=== PATIENT | male | born 1990 | race Caucasian/White ===

== ENCOUNTER → 2017-05-09 08:33 | Outpatient (CLI) | payer OTHER, SELFPAY ==
--- NOTE | 2017-05-09 08:37 | RAD_ITS ---
STUDY: X-RAY - RIGHT ELBOW REASON FOR EXAM: Male, 27 years old. 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 TECHNIQUE: 3 view(s) of the elbow. COMPARISON: None. FINDINGS: Normal visualized humerus, radius and ulna. Normal radiocapitellar and ulnotrochlear articulations. The soft tissue structures are unremarkable. RAD/Elbow min 3 Views IMPRESSION: Normal x-ray examination of the elbow. Electronically Signed: Giles Fatima MD at 10:13 EDT , Service support ,
== END ==
PROVIDERS: Visit Provider Orthopaedic Surgery
DX: M25.521 Pain in right elbow (principal)
CPT/HCPCS: 73080

== ENCOUNTER → 2017-06-11 13:27 | Outpatient (CLI) | payer OTHER, SELFPAY ==
--- NOTE | 2017-06-11 13:30 | RAD_ITS ---
STUDY: X-RAY - RIGHT SHOULDER REASON FOR EXAM: Shoulder instability. TECHNIQUE: 3 view(s) of the shoulder. COMPARISON: None. FINDINGS: Normal glenohumeral articulation. Normal acromioclavicular joint. Normal acromion. Normal humeral head and visualized proximal humerus. The soft tissue structures are unremarkable. Normal visualized pulmonary apex. RAD/Shoulder min 2 Views IMPRESSION: Normal x-ray examination of the right shoulder. Electronically Signed: Simon Bean MD at 14:23 EDT Tel , Service support ,
== END ==
PROVIDERS: Visit Provider Orthopaedic Surgery
DX: M25.511 Pain in right shoulder (principal)
CPT/HCPCS: 73030

== ENCOUNTER → 2018-06-24 12:57 | Outpatient (CLI) | payer OTHER, SELFPAY ==
--- NOTE | 2018-06-24 12:59 | RAD_ITS ---
STUDY: X-RAY - RIGHT WRIST REASON FOR EXAM: Male, 28 years old. Injury. TECHNIQUE: 3 view(s) of the wrist were obtained. COMPARISON: None. FINDINGS: Normal visualized distal radius and ulna. Normal radiocarpal articulation. Normal distal radioulnar articulation. Normal carpal bones. Normal carpal articulations. Normal carpometacarpal articulation of the thumb. Normal second through fifth carpometacarpal articulations. Normal visualized metacarpal bones. The soft tissue structures are unremarkable. RAD/Wrist min 3 Views IMPRESSION: Normal x-ray examination of the wrist. No evidence of acute injury. Electronically Signed: Tiago Romero MD at 15:58 EDT Tel , Service support ,
== END ==
PROVIDERS: Family Provider Orthopaedic Surgery; Referring Provider Orthopaedic Surgery; Visit Provider Orthopaedic Surgery
DX: R53.1 Weakness (principal)
CPT/HCPCS: 73110

== ENCOUNTER 2018-08-12 15:00 | Outpatient (RCR) | payer OTHER, SELFPAY ==
--- NOTE | 2018-07-02 12:03 | HP.OTEVAL ---
Patient's Visit Information HALIMA RAYMOND is a 28 year old M, referred to Occupational Therapy by Anel Spence DO, with a diagnosis of right wrist pain/strain. Date of Evaluation: 07/02/18 Occupational Therapist: TIGIST Alva/Renan, CHT - Subjective Subjective: This 28 year old male was seen for initial OT eval with dx of right wrist sprain/strain- pt states he was playing tennis/ racket ball- pt states about 4 weeks ago he started playing without warning up and felt a pop on the ulnar side of his wrist. pt states he feels pain and feels as if his right arm is not as strong. Pt would like to return to PLOF with his tennis and work tasks. - Pain right wrist 4 Pain Intensity Range: 0, 3 - ROM Forearm: rigth sup wnl pron 65 left sup 75 Wrist: right 75/60 left 75/65 ROM Comments: left UD 15 RD 15. 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 pain with resistive FCU - Sensation Thumb: right 2.83 left 2.83 Index: right 2.83 left 2.83 Middle: right 2.83 left 2.83 Ring: right 2.83 left 2.83 Little: right 2.83 left 2.83 Sensation Comments: pt reports his right arm does feel off- not strong or not at strong with activities - Hand/Wrist Evaluation Total Score of Pain & Functional Sections: 31 - Goals Goal:: pt will demo right forearm/wrist ROM equal to unaffected UE by d/c to return to PLOF with work tasks. Goal:: pt will report pain no greater than 1/10 with use of right UE with daily occupations and work tasks by d/c Goal:: pt will demo understanding of work ergo to prevent injury by d/c - Rehabilitation General Assessment: pt demo with positive right wrist/forearm muscle sprain/strain- around FCU and pronator. Pain and weakness limit pts ind. with job and daily occupations. pt would benefit from skilled OT services 2-3xweek for 4 weeks to return pt to PLOF. Today therapist ed. pt on ice, use of k-tape, therapist will ed. pt on nerve and tendon glide as pt continues to improve PRE will be initiated. Pt demo understanding and agree to POC. Rehabilitation Potential: Good - Anticipated Interventions Anticipated Interventions: A/AAROM/PROM, Strengthening, Triggerpoint Release, Modalities, Orthoses, Ergonomic Education - Visit Plan Frequency: 2-3x /Week Duration: 4 Weeks TEXT: Thank you for the opportunity to evaluate your patient. For Medicare and Medicare HMO plans, please review the plan of care and approve it. It will need to be FAXED BACK to us at [phone] for Medicare purposes. Please let me know if there are questions or concerns regarding this plan of care. Physician Signature: Date:
--- NOTE | 2018-09-10 15:32 | HP.OT.NRP ---
HP - Discharge Summary - Patient Information HALIMA RAYMOND was seen in my office for initial evaluation on 07/02/18. The following Plan of Care was established for this patient: Initial Frequency: 2-3x /Week Initial Duration: 4 Weeks Plan: Pt wanting hawk tool to be used after US-OT unable to this date due to time constraints. - Anticipated Interventions Anticipated Interventions: A/AAROM/PROM, Strengthening, Triggerpoint Release, Modalities, Orthoses, Ergonomic Education This patient was last seen in our office 08/12/18. Pertinent comments regarding their Occupational therapy will appear below: pt seen for 6 OT sessions to decrease wrist pain. pt using k-tape, PRE and ice for HEP- pt did have good results with use of US and trigger point release with Hawk tool. Pt has not scheduled any further sessions and is d/c due to time lapse in therapy services. At this point I will be discontinuing this patient from occupational therapy. I would be happy to see this patient again in the future if found appropriate by the physician. Thank you! Gala Kinney, OTR/L, CHT
== END 2018-08-12 19:00 | disposition home or self-care (01) ==
LOC: OT 15:00
PROVIDERS: Family Provider Family Medicine; PCP Family Medicine; Referring Provider Orthopaedic Surgery; Visit Provider Orthopaedic Surgery
DX: M77.41 Metatarsalgia, right foot (principal); S93.601D Unspecified sprain of right foot, subsequent encounter
CPT/HCPCS: 97035; 97110; 97140; 97166

== ENCOUNTER 2019-03-02 21:55 | Observation (INO) | payer OTHER, SELFPAY ==
[2019-03-02 21:55] VITALS: BP 155/91; PULSE 101; RESP 18; TEMP 36.3; O2SAT 95; BMI 28.5
--- NOTE | 2019-03-02 22:40 | CT_ITS ---
We are attempting to reach an attending provider to discuss findings. An addendum with communication details will be sent when the communication is complete. STUDY: CT ABDOMEN AND PELVIS WITH CONTRAST REASON FOR EXAM: Male, 28 years old. RLQ PAIN TODAY, ELEVATED WBC RADIATION DOSAGE (If Supplied By Facility): CTDIvol = ( 13.91 ) mGy, DLP = ( 939.13 ) mGycm TECHNIQUE: Transaxial images were obtained from the dome of the diaphragm to the symphysis pubis without oral contrast. IV 100mL Isovue-370 was administered. Sagittal and coronal images were reconstructed. Individualized dose optimization techniques were used for this CT. COMPARISON: None. FINDINGS: The visualized lung bases are unremarkable. The visualized portions of the heart are within normal limits. Normal liver. Normal gallbladder and extrahepatic biliary system. Normal spleen. Normal pancreas. Normal bilateral adrenal glands. Normal right kidney. Normal left kidney. Normal visualized stomach. Normal small intestine. There is minimal edema at the level of the cecum. There is a tubular, and feeding thick-walled appendix measuring 1.1 cm consistent with acute appendicitis. Normal abdominal aorta. Normal inferior vena cava. Normal retroperitoneum. Normal urinary bladder. Normal visualized prostate gland. There is trace fluid in the right side of the pelvis. Normal osseous structures. CT/Abdomen/Pelvis W IV Cont ONLY IMPRESSION: Findings highly suspicious for acute appendicitis. Electronically Signed: Jennifer Irvin MD at 23:59 EST Tel , Service support ,
[2019-03-02] MEDS: 0.9% Normal Saline 1,000 ML 1000 ML IV (23:00)
[2019-03-02] MEDS: Morphine 4 MG/ML Syringe IV (23:00)
[2019-03-02] MEDS: Ondansetron 4 MG/2 ML Vial IV (23:03)
[2019-03-02 23:14] LABS: Absolute Lymphocyte Count 1.72 X10^3/uL (0.83-4.51); Absolute Neutrophil Count 9.6 X10^3/uL (2.0-7.7); Basophil# 0.03 X10^3/uL; Basophil% 0.2 % (0-1); Eosinophil# 0.14 X10^3/uL; Eosinophils% 1.1 % (0-5); Hematocrit 45.3 % (40-54); Lymphocyte # 1.72 X10^3/ul (4.0); Lymphocyte % 13.7 % (19-41); Mean Corp Hgb Conc 33.1 g/dL (32-36); Mean Corpuscular Hgb 28.6 pg (27.0-32.0); Mean Corpuscular Volume 86.3 fL (80-94); Monocyte# 1.03 X10^3/uL; Monocyte% 8.2 % (0-10); NRBC Flagged by Analyzer 0 % (0-5); Neutrophil % 76.6 % (47-70); Platelet Count 323 K/mm3 (150-450); RBC Distribution Width CV 12.2 % (11.6-14.6); RBC Distribution Width SD 38.5 fl (35.1-43.9); Red Blood Count 5.25 M/mm3 (4.6-6.2); White Blood Count 12.6 K/mm3 (4.4-11.0)
--- NOTE | 2019-03-02 23:25 | ED.DCSUM_ITS ---
History of Present Illness Chief Complaint: Abd Pain Informant: Patient - Abdominal Pain/Flank Pain Onset: Today Context: Gradual Onset Timing: Continuous Quality: Sharp, Stabbing Location: RLQ - Nausea/Vomiting/Emesis GI Symptom: Negative for: Nausea, Vomiting - Diarrhea/Melena/Hematochezia GI Symptom: Negative for: Diarrhea Narrative: Patient is a 28-year-old male with no significant past medical history presenting with worsening right lower quadrant abdominal pain. He states yesterday his stomach felt a little upset but he thought he maybe had a bug. Today while he was at work he developed pain in his right lower quadrant. He describes it as sharp. Is much worse whenever he moves or walks around. The pain does not radiate. He does not have any pain in his testicles. He denies any fever or chills. He states he had normal bowel movements. He denies taking any for pain. Pain started approximately 4 to 5 hours prior to arrival. Patient did have right knee surgery recently. He has had no complications with it. He still in a knee immobilizer for this. Patient not take anything for pain prior to arrival. Past Medical History - Allergies and Home Meds Allergies/Adverse Reactions: Allergies No Known Allergies Allergy (Verified 03/02/19 21:58) Primary Care Physician: Kendrick Villarreal MD [Primary Care Provider] - Past Medical History: None Surgical History: - - Right knee surgery Lives: Spouse/ Significant Other Smoking Status: Never smoker - Family History Maternal Family History: Family History (Last Updated 05/09/17 @ 08:27 by Cheryl Ludwig) Mother Depression Review of Systems General: Denies: Chills, Fever, Sweats Eyes: Denies: Visual changes - bilaterally, Diplopia ENT: Denies: Rhinorrhea, Sore throat Cardiovascular: Denies: Chest pain, Palpitations Respiratory: Denies: Dyspnea, Cough, Dyspnea on exertion Gastrointestinal: Reports: Abdominal pain - Right lower quadrant. Denies: Nausea, Vomiting, Diarrhea, Melena, Hematochezia Genitourinary: Denies: Dysuria, Hematuria, Frequency Musculoskeletal: Reports: Extremity Pain - Right knee pain?postoperative, normal for patient. Denies: Back pain Skin: Denies: Rash, Wounds Neurological: Denies: Headache, Weakness, Numbness Physical Exam Vital Signs/Narrative: Vital Signs Temp Pulse Resp BP Pulse Ox 03/02/19 21:55 97.3 F L 101 H 18 155/91 H 95 General: Well nourished, Well developed, No Acute Distress Head: Normocephalic, Atraumatic Eyes: Perrl, EOMI ENT: Moist mucous membranes, No rhinorrhea Neck: Supple, Nontender Cardiovascular: Regular rate, Regular rhythm, No murmurs Respiratory: No distress, CTA bilaterally, Chest nontender Abdomen: Soft, Normal bowel sounds, Tender - Right lower quadrant, Guarding, Rebound tenderness, Psoas sign, Obturator sign, Rovsig's sign Back: Nontender, Normal Inspection. Negative for: CVA tenderness Extremities: Nontender, - - Right lower extremity is in a knee immobilizer Skin: Normal color, No rash Neurological: Alert, Oriented x3, Cranial nerves II-XII grossly intact, Normal Strength, Normal Sensation Psychological: Normal affect, Normal Mood Diagnostic/Tx/Re-eval Clinical Impression(s) from Imaging Studies Abdomen/Pelvis CT 03/02/19 22:40 IMPRESSION: Findings highly suspicious for acute appendicitis. Electronically Signed: Jeninfer Irvin MD at 23:59 EST Tel , Service support , ADDENDUM: 03/03/19 0009 IMPRESSION: Findings highly suspicious for acute appendicitis. N.B. : The above information has been verbally conveyed by Jennifer Irvin MD to Mile Alvares MD, on 03/03/2019 00:02:41 (ET). Electronically Signed: Jennifer Irvin MD at 23:59 EST Tel , Service support , Laboratory Data 03/02/19 03/02/19 23:05 23:05 WBC 12.6 H RBC 5.25 Hgb 15.0 Hct 45.3 MCV 86.3 MCH 28.6 MCHC 33.1 RDW Std Deviation 38.5 RDW Coeff of Adelina 12.2 Plt Count 323 MPV 10.0 Immature Gran % (Auto) 0.200 Neut % (Auto) 76.6 H Lymph % (Auto) 13.7 L Rock % (Auto) 8.2 Eos % (Auto) 1.1 Baso % (Auto) 0.2 Absolute Neuts (auto) 9.6 H Absolute Lymphs (auto) 1.72 Nucleated RBC % 0 Sodium 135 L Potassium 3.8 Chloride 104 Carbon Dioxide 25.0 Anion Gap 6 BUN 18 Creatinine 0.99 Estim Creat Clear Calc 120.43 Est GFR (MDRD) Af Amer 117 Est GFR (MDRD) Non-Af 97 BUN/Creatinine Ratio 18.3 Glucose 93 Calcium 9.7 Total Bilirubin 0.90 AST 15 ALT 37 Alkaline Phosphatase 82 Total Protein 7.9 Albumin 3.8 Globulin 4.1 Albumin/Globulin Ratio 0.9 - Medical Decision Making Patient is evaluated for right lower quadrant pain. Physical exam is concerning for acute appendicitis. He is given IV fluids, Zofran and morphine. CT shows acute appendicitis but no signs of rupture. Discussed with surgery on-call, Dr. Shafer, who examined the patient and accepts the patient to his service for appendectomy. Patient is stable in the emergency room. He is given another dose of morphine in the emergency room. Patient is agreeable with plan. He stable at time of disposition. ED Disposition - Plan for ED Patient: Disposition: Acute Care [facility] Diagnosis: Acute appendicitis Referrals: Kendrick Villarreal MD [Primary Care Provider] -
[2019-03-02 23:27] LABS: ALB/GLOB Ratio 0.9 RATIO (0.9-2.4); AST(SGOT) 15 U/L (15-37); Alanine Aminotransfer ALT/SGPT 37 U/L (16-61); Albumin, Serum 3.8 g/dL (3.2-5.0); Alkaline Phosphatase 82 U/L (45-117); Anion Gap 6 (5-15); BUN 18 mg/dL (7-18); BUN/Creat Ratio 18.3 RATIO (10-20); Calcium,Total 9.7 mg/dL (8.5-10.1); Chloride 104 mmol/L (98-107); Creatinine, Serum 0.99 mg/dL (0.70-1.30); EST Glomerular Filtration Rate 97 mL/min (>60); Est Glom Filt Rate - Afr Amer 117 mL/min (>60); Estimated Creatinine Clearance 120.43 ml/min; Globulin 4.1 g/dL (2.2-4.2); Glucose 93 mg/dL (74-106); Potassium 3.8 mmol/L (3.5-5.1); Protein, Total 7.9 g/dL (6.4-8.2); Sodium Level 135 mmol/L (136-145)
[2019-03-03] VITALS (11 sets, daily range): BP systolic 106–138; BP diastolic 57–76; PULSE 78–97; RESP 16–18; TEMP 36.7–37.4; O2SAT 93–97; BMI 28.3
[2019-03-03] MEDS: Morphine 4 MG/ML Syringe IV (00:24)
--- NOTE | 2019-03-03 00:27 | HP.PCM_ITS ---
Problem List (1) Acute appendicitis Status: Acute Qualifiers: Acute appendicitis type: unspecified acute appendicitis type Qualified Code(s): K35.80 - Unspecified acute appendicitis History of Present Illness Date of Admission: 03/03/19 The patient is a 28 year old M who presented with 24 hours of right lower quadrant pain. He does describe nausea but no vomiting. He says the pain started in the umbilical area and migrated to the right lower quadrant. He describes chills but no fevers. Past Medical History Medical History: Medical History (Last Updated 05/09/17 @ 08:26 by Cheryl Ludwig) Depression F32.9 Schizophrenia F20.9 Diamond teeth extracted K08.409 Allergies No Known Allergies Allergy (Verified 03/02/19 21:58) Home Medications: Ambulatory Orders Medication Instructions Recorded Aripiprazole [Abilify] 20 mg PO DAILY 03/02/19 Docusate Sodium [Stool Softener] 100 mg PO DAILY 03/02/19 Paroxetine HCl [Paxil] 10 mg PO DAILY 03/02/19 Surgical History: - - Right knee surgery Lives: Spouse/ Significant Other Smoking Status: Never smoker - *Family History Maternal Family History: Family History (Last Updated 05/09/17 @ 08:27 by Cheryl Ludwig) Mother Depression Review of Systems Constitutional: Reports: Anorexia. Denies: Fever HEENT: Denies: Difficulty Swallowing Cardiovascular: Denies: Chest Pain Respiratory: Denies: Cough Gastrointestinal: Reports: Abdominal Pain, Nausea. Denies: Constipation, Diarrhea, Vomiting Genitourinary: Denies: Dysuria Musculoskeletal: Denies: Joint Tenderness Skin: Denies: Pruritis Neurological: Denies: Blurred vision Psychiatric: Reports: Depression Hematologic/ Lymphatic: Denies: Anemia VTE Information - Inpt Only VTE Present on Admission: No VTE Mechan Device Prophylaxis: SCD's Patient Problems: Active and Suspected Problems (Last Updated 05/09/17 @ 08:26 by Cheryl Ludwig) Acute appendicitis (Acute) - Physical Exam Vitals/I&O's: Vital Signs Temp Pulse Resp BP Pulse Ox 97.3 F L 101 H 18 155/91 H 95 03/02/19 21:55 03/02/19 21:55 03/02/19 21:55 03/02/19 21:55 03/02/19 21:55 Oxygen Delivery Method Room Air Weight: 205 lb Body Mass Index (BMI) 28.5 Intake and Output for Last 24 Hours 03/01/19 03/02/19 03/03/19 23:59 23:59 23:59 Intake Total 1000 / 1000 Balance 1000 / 1000 General: Alert, Oriented x3 Neck: No JVD Lungs: Normal air movement Cardiovascular: Regular Rhythm, Tachycardic Abdomen: Soft, Non-Distended, Tender - Tender in right lower quadrant Extremities: No clubbing Musculoskeletal: No Muscle Wasting Neurological: Cranial nerves II-XII grossly intact Psych/Mental Status: Normal Affect Laboratory Results 03/02/19 23:05: WBC 12.6 H, RBC 5.25, Hgb 15.0, Hct 45.3, MCV 86.3, MCH 28.6, MCHC 33.1, RDW Std Deviation 38.5, RDW Coeff of Adelina 12.2, Plt Count 323, MPV 10.0, Immature Gran % (Auto) 0.200, Neut % (Auto) 76.6 H, Lymph % (Auto) 13.7 L, Tyrrell % (Auto) 8.2, Eos % (Auto) 1.1, Baso % (Auto) 0.2, Absolute Neuts (auto) 9.6 H, Absolute Lymphs (auto) 1.72, Nucleated RBC % 0 03/02/19 23:05: Sodium 135 L, Potassium 3.8, Chloride 104, Carbon Dioxide 25.0, Anion Gap 6, BUN 18, Creatinine 0.99, Estim Creat Clear Calc 120.43, Est GFR (MDRD) Af Amer 117, Est GFR (MDRD) Non-Af 97, BUN/Creatinine Ratio 18.3, Glucose 93, Calcium 9.7, Total Bilirubin 0.90, AST 15, ALT 37, Alkaline Phosphatase 82, Total Protein 7.9, Albumin 3.8, Globulin 4.1, Albumin/Globulin Ratio 0.9 Clinical Impression(s) from Imaging Studies Abdomen/Pelvis CT 03/02/19 22:40 IMPRESSION: Findings highly suspicious for acute appendicitis. Electronically Signed: Jennifer Irvin MD at 23:59 EST Tel , Service support , ADDENDUM: 03/03/19 0009 IMPRESSION: Findings highly suspicious for acute appendicitis. N.B. : The above information has been verbally conveyed by Jennifer Irvin MD to Mile Alvares MD, on 03/03/2019 00:02:41 (ET). Electronically Signed: Jennifer Irvin MD at 23:59 EST Tel , Service support , Current Medications Acetaminophen (Tylenol) 650 mg PO Q6H PRN PRN PRN Reason: Pain Score 1-10/10 Docusate Sodium (Colace) 100 mg PO DAILY ARTHUR Piperacillin Sod/Tazobactam Sod (Zosyn) 3.375 gm in 50 mls @ 12.5 mls/hr IV Q8 ARTHUR Sodium Chloride () 1,000 mls @ 125 mls/hr IV .Q8H ARTHUR Morphine Sulfate () 2 - 4 mg IV Q2H PRN PRN PRN Reason: Pain Score 6-10/10 Non-Formulary Medication (Aripiprazole) 20 mg PO DAILY ARTHUR Ondansetron HCl (Zofran) 4 mg IV Q6H PRN PRN PRN Reason: NAUSEA/VOMITING Paroxetine HCl (Paxil) 10 mg PO DAILY ARTHUR Assessment/Plan All Active Problems (Last Updated 05/09/17 @ 08:26 by Cheryl Ludwig) Acute appendicitis (Acute) 28-year-old male with acute appendicitis 1. Patient has elevated white count as well as CT scan showing thickened appendix. Patient reports right lower quadrant pain with migration. I discussed the diagnosis with the patient and his mother. I discussed laparoscopic appendectomy in detail with the patient. I discussed the risks including but not limited to bleeding, infection, perforation necessitating ileocecectomy, ureteral injury. I also discussed the possibility of having to convert to open procedure. The patient understands all the risks and is willing to proceed with surgery. I will start the patient antibiotics and take the patient first thing in the morning. Peña Gray MD Pager: [facility] [address] [place] [address], [address] [place] [address] Office:
[2019-03-03 00:43] LABS: Bacteria 0 SEEN /hpf (None Seen); Mucous, Urine 0 SEEN /hpf (<or=2+); Red Blood Cells-Urine 0 SEEN /hpf (0-5); Squamous Epithelial Cells - UA 0 SEEN /hpf (0-5); White Blood Cells 0 SEEN /hpf (0-5)
[2019-03-03 00:44] LABS: Color, Urine Yellow (Yellow); Glucose, Dipstick Normal (Normal); Ketone-Dipstick Negative (Negative); Leukocyte Esterase-Dipstick Negative /ul (Negative); Nitrite-Dipstick Negative (Negative); Occult Blood-Urine Negative /ul (Negative); Protein-Dipstick Negative (Negative); Urine Bilirubin Dipstick Negative (Negative); Urine Clarity Clear (Clear); Urine Urobilinogen Normal (Normal)
[2019-03-03] MEDS: Piperacil/Tazobactam 3.375 GM/50 ML ML IV ×2 (01:49→14:07)
[2019-03-03] MEDS: 0.9% Normal Saline 1,000 ML 125 ML IV (01:49)
[2019-03-03] MEDS: 0.9% Saline Lock 10 ML Syringe IV ×2 (05:08→07:28)
[2019-03-03] MEDS: Morphine 2 MG/ML Syringe IV ×2 (05:08→07:28)
[2019-03-03] MEDS: Bupiv/Epi 0.25% 30 ML Vial (06:00)
--- NOTE | 2019-03-03 06:18 | PCM.OPRPT ---
Problem List (1) Acute appendicitis Status: Acute Qualifiers: Acute appendicitis type: unspecified acute appendicitis type Qualified Code(s): K35.80 - Unspecified acute appendicitis Report of Operation Date of Procedure: 03/03/19 Pre-Operative Diagnosis: Acute appendicitis Post-Operative Diagnosis: Same Surgery/Procedure Performed:: Laparoscopic appendectomy Description of Surgical Findings:: Inflamed appendix. Wound class III Specimen's removed: Appendix Description of Procedure: The patient was brought into the operating room and general anesthesia was induced. The left arm was tucked and the abdomen was prepped and draped in usual sterile fashion. A small midline incision was made superior to the umbilicus and deepened to the level of the fascia. The fascia was elevated and incised. The peritoneum was also elevated and incised. A finger sweep was performed and a balloon trocar was placed into the abdomen and inflated. The abdomen was insufflated to 15 mmHg and the camera was inserted and the abdomen was inspected for any injuries upon entering the abdomen. There were none. The patient was placed in Trendelenburg position and a 5 mm ports placed in the left lower quadrant and suprapubic areas under direct visualization. Next using atraumatic bowel graspers the appendix was identified. The appendix was grasped and elevated and a harmonic scalpel was used to take down the mesoappendix. A stapler was used to come across the base of the appendix. The appendix was then placed in Endo Catch bag and removed through the umbilical incision. The staple line was inspected and found to be hemostatic and intact. The 2 5 mm ports are removed under direct visualization. The balloon trocar was deflated and removed and all the air was removed from the abdomen. The umbilical incision fascia was closed with an 0 Vicryl [id number] suture. The incisions were then irrigated with saline and dried. Local anesthetic was injected into the incision sites. The skin incisions were then closed with interrupted 4-0 Monocryl suture and Steri-Strips. Bandages were applied and the patient was awoken and taken to PACU in stable condition. Patient tolerated the procedure well. - Admit VTE Documentation VTE Mechan Device Prophylaxis: SCD's
--- NOTE | 2019-03-03 06:20 | APP_PTH ---
PATIENT: HALIMA RAYMOND LOC: [facility] U#:[id number] AGE/SX: 28/M ROOM: [facility]320 RE03/03/[address]: Dr. Peña Gray MD : [id number] BED: 1 DIS: 03/03/2019 SPEC #: [id number] RECD: 03/03/19 09:30 STATUS: ETHAN REEri #: [id number] MORENA: 03/03/19 06:[address]: Peña Gray DEPT: SURGICAL PATHOLOGY RECD BY: Mason Marquez ENTERED: 03/03/19 13:13 SP TYPE: APPENDIX OTHR DR: Dr. Kendrick Villarreal MD Tissues: Appendix, NOS Procedures: Surgery Specimen Level III HEADER OPERATION: Laparoscopic appendectomy PRE-OP DIAGNOSIS: Acute appendicitis TISSUE SUBMITTED: Appendix MICROSCOPIC DIAGNOSIS Appendix: Acute appendicitis and periappendicitis. DAIJA:colin 03/04/19 MICROSCOPIC DESCRIPTION Slides are reviewed. GROSS DESCRIPTION Received is one container labeled with the patient's name and designated appendix. The specimen consists of a C-shaped appendix measuring 7.5 cm in length and up to 1.5 cm in diameter. The attached periappendiceal adipose tissue measures up to 1.2 cm in width. The serosa is congested and covered with garcia, purulent exudate. No obvious perforation is identified. The lumen is filled with hemorrhagic material. No fecalith is identified. Director Regulatory Affairs sections are submitted in one cassette. / SJ:colin 03/03/19 TC:2 CPT: 28091
--- NOTE | 2019-03-03 06:22 | PCM.DC.APPY ---
Discharge Diet: Light diet - advance as tolerated Discharge Activity: May Not Drive - for 3-5 days or while taking narcotic pain meds. May shower in (days): 1 Lifting Restrictions: 20 lbs for 2 weeks Call your doctor if your incision/area has: Continuous Slow Oozing, Sudden Increased Bleeding, Increased Pain/ Swelling, Increased Redness, Foul Smelling Discharge Call your doctor if you observe: Fever of 101 or Higher Suture Line Care: Avoid Pulling/Pushing, Avoid Pinching/Bending Additional Dressing/Incision Instructions:: Keep dressing clean and dry. Change or remove dressing in 2 days. Leave steri strips for 1 week. May protect with a gauze bandaid. Medications to take at Discharge Aripiprazole [Abilify] 30 mg PO DAILY 03/02/19 Docusate Sodium [Stool Softener] 100 mg PO DAILY 03/02/19 Paroxetine HCl [Paxil] 10 mg PO DAILY 03/02/19 Aspirin [Aspirin EC] 81 mg PO DAILY 03/03/19 Oxycodone HCl/Acetaminophen [Percocet 5/325] 1 - 2 tablet PO Q4H PRN PRN 7 Days #40 tablet 03/03/19 Allergies/Adverse Reactions: Allergies No Known Allergies Allergy (Verified 03/03/19 01:54) The following prescriptions were given: Oxycodone HCl/Acetaminophen [Percocet 5/325] 1 - 2 tablet PO Q4H PRN PRN 7 Days #40 tablet PRN Reason: Pain Transmission Status: Sent to [facility] Primary Care Physician: Kendrick Villarreal MD [Primary Care Provider] - Test Results: Test results from this visit will be discussed in further detail at your follow-up appointment, if applicable. Please Follow Up With: Peña Gray MD When: Please call to schedule 2 week follow up appointment. [phone]
[2019-03-03] MEDS: Ondansetron 4 MG/2 ML Vial IV (07:28)
[2019-03-03] MEDS: 0.9% Normal Saline 1,000 ML 60 ML IV (08:55)
[2019-03-03] MEDS: Acetaminophen 325 MG Tablet 650 MG PO (08:56)
[2019-03-03] MEDS: ARIPiprazole 10 MG Tablet 30 MG PO (11:16)
[2019-03-03] MEDS: Docusate Sodium 100 MG Capsule PO (11:16)
[2019-03-03] MEDS: PARoxetine 10 MG Tablet PO (11:16)
== END 2019-03-03 18:43 | disposition home or self-care (01) ==
LOC: ED 03-03 00:41 → MS3 03-03 00:41
PROVIDERS: Admitting Provider Surgery; Emergency Provider Emergency Medicine; Family Provider Family Medicine; PCP Family Medicine; Visit Provider Surgery
PROC: 0DTJ4ZZ Resection of Appendix, Percutaneous Endoscopic Approach (ICD-10-PCS; CPT 44970; principal; 2019-03-03 06:00)
DX: K35.80 Unspecified acute appendicitis (principal); Z23 Encounter for immunization; F20.9 Schizophrenia, unspecified; F32.9 Major depressive disorder, single episode, unspecified; Z79.899 Other long term (current) drug therapy; Z79.82 Long term (current) use of aspirin
CPT/HCPCS: 44970; 74177; 80053; 81001; 85025; 88304; 96365; 96366; 96375; 96376; 99218; 99284; J7030; J7050; Q9967; 90686; A4216; C1760; G0378; J2405

== ENCOUNTER 2019-04-08 16:39 | Emergency (ER) | payer OTHER, SELFPAY ==
[2019-03-17 08:50] VITALS: BMI 28.3
[2019-04-08 16:42] VITALS: BP 153/83; PULSE 78; RESP 17; TEMP 37.1; O2SAT 96; BMI 28.8
--- NOTE | 2019-04-08 16:59 | ED.DCSUM_ITS ---
- ER Visit Summary Date of Service: 04/08/19 Chief Complaint: Right leg swelling History of Present Illness: The patient is a 28 M who has right leg swelling. He had a patellar reconstruction back in January. He is currently in a right knee brace with 65 degrees range of motion. Today was the first day he works a full 8-hour day and at the end of the day he noticed his leg was little bit more red and swollen. Now that he has been laying in the bed his color is back to normal and he states it does not feel as swollen but still feels tight. He has no history of DVT in the past. He spoke with the [place] [facility] and they sent him in to rule out DVT Physical Examination: Vital signs are reviewed. Right leg exam reveals no swelling. He has 2+ DP pulses. His incision over the patella is clean dry and intact. He has no calf tenderness. His range of motion is to 65 degrees with minimal pain. Test Results: Ultrasound is positive for a DVT in the right gastroc Emergency Department Course and Treatment: The patient does have a DVT in the right gastroc vein, below the knee. I discussed with Dr. Barker, on-call for this patient's surgeon. Since it is been about 2 months since his surgery he would lean towards doing anticoagulation. I feel that this is reasonable. I will start him on Eliquis. He is going to call his surgeon tomorrow Treatment Plan: [] Disposition: Discharge Impression: DVT, right leg This note was generated with [employer] dictation software. It may contain incorrect words, spelling, and punctuation that were not noted in review of the chart prior to signing ED Disposition - Plan for ED Patient: Disposition: Home or Assisted Living Instructions: Dvt Prescriptions: Apixaban [Eliquis] 5 mg PO BID #74 tab Transmission Status: Pending to [id number] Referrals: Kendrcik Villarreal MD [Primary Care Provider] - Additional Instructions: Prescription was electronically transmitted to [facility]
--- NOTE | 2019-04-08 17:21 | US_ITS ---
STUDY: VENOUS DOPPLER ULTRASOUND - BILATERAL LOWER EXTREMITIES REASON FOR EXAM: Male, 28 years old. RT LEG REDNESS PAIN AND SWELLING S/P KNEE SURGERY -FEB 13 TECHNIQUE: Ultrasound evaluation of the deep vein system to include sood-scale imaging and compression was performed. Sood-scale imaging and Doppler sonographic evaluation, including duplex spectral analysis and qualitative color flow sonography, was performed. COMPARISON: None. FINDINGS: RIGHT LEG Common Femoral Vein: Normal compression, spontaneity and augmentation. Normal color Doppler. Common Femoral Vein/Greater Saphenous Junction: Normal compression, spontaneity and augmentation. Normal color Doppler. Deep Femoral Vein: Normal compression, spontaneity and augmentation. Normal color Doppler. Femoral Proximal: Normal compression, spontaneity and augmentation. Normal color Doppler. Femoral Middle: Normal compression, spontaneity and augmentation. Normal color Doppler. Femoral Distal: Normal compression, spontaneity and augmentation. Normal color Doppler. Popliteal Vein: Normal compression, spontaneity and augmentation. Normal color Doppler. Posterior Tibial Vein: Normal compression, spontaneity and augmentation. Normal color Doppler. Peroneal Vein: Normal compression, spontaneity and augmentation. Normal color Doppler. Noncompressible vein with intraluminal thrombus in the right gastrocnemius vessel is compatible with fissural thrombophlebitis. LEFT LEG Common Femoral Vein: Normal compression, spontaneity and augmentation. Normal color Doppler. Common Femoral Vein/Greater Saphenous Junction: Normal compression, spontaneity and augmentation. Normal color Doppler. Deep Femoral Vein: Normal compression, spontaneity and augmentation. Normal color Doppler. Femoral Proximal: Normal compression, spontaneity and augmentation. Normal color Doppler. Femoral Middle: Normal compression, spontaneity and augmentation. Normal color Doppler. Femoral Distal: Normal compression, spontaneity and augmentation. Normal color Doppler. Popliteal Vein: Normal compression, spontaneity and augmentation. Normal color Doppler. Posterior Tibial Vein: Normal compression, spontaneity and augmentation. Normal color Doppler. Peroneal Vein: Normal compression, spontaneity and augmentation. Normal color Doppler. US/Venous Duplex Imag/Masoud Extrem IMPRESSION: 1. Noncompressible vein with intraluminal thrombus in the right gastrocnemius vessel is compatible with superficial thrombophlebitis. 2. No demonstrated deep venous thrombosis of the bilateral lower extremities. Electronically Signed: Edgardo Alves MD at 18:23 EST , Service support ,
[2019-04-08] MEDS: APIXABAN 5 MG TABLET 10 MG PO (18:30)
[2019-04-08 18:34] VITALS: BP 134/76; PULSE 75; RESP 16; O2SAT 99
== END 2019-04-08 18:36 | disposition home or self-care (01) ==
PROVIDERS: Emergency Provider Emergency Medicine; PCP Family Medicine
DX: I82.491 Acute embolism and thrombosis of other specified deep vein of right lower extremity (principal)
CPT/HCPCS: 93970; 99283

== ENCOUNTER → 2019-04-27 13:38 | Outpatient (CLI) | payer OTHER, SELFPAY ==
[2019-04-08 16:42] VITALS: BMI 28.8
--- NOTE | 2019-04-27 13:41 | VDLE_ITS ---
Reason For Study: Thrombophlebitis RIGHT GSV is normal. CFV is compressible, spontaneous, phasic, competent and demonstrates normal augmentation. FV is compressible, spontaneous, phasic, competent and demonstrates normal augmentation. POP V is compressible, spontaneous, phasic, competent and demonstrates normal augmentation. T/P Trunk is compressible. PTV is compressible. RT PerV is compressible. Rt GastrocV is now compressible. Procedure Exam performed in department. Compared to 04/08/2019. A preliminary report was called and/or faxed to [facility]. Interpretation Summary Deep veins of the right lower extremity are patent and compressible segmentally. There is no evidence of right lower extremity deep vein thrombosis. Valvular competence appears intact within the proximal deep venous system on the right . The right great saphenous vein appears patent and compressible segmentally. Acute deep vein thrombosis, previously identified in the right gastrocnemius vein, appears to have resolved. Ordering Physician: Kendrick Villarreal Referring Physician: Kendrick Villarreal Performed By: Tianna Mina RVT
== END ==
PROVIDERS: PCP Family Medicine; Referring Provider Family Medicine; Visit Provider Family Medicine
DX: I80.01 Phlebitis and thrombophlebitis of superficial vessels of right lower extremity (principal)
CPT/HCPCS: 93971

== ENCOUNTER 2019-09-02 18:29 | Emergency (ER) | payer OTHER, SELFPAY ==
[2019-09-02 18:31] VITALS: BP 158/87; PULSE 78; RESP 15; TEMP 36.8; O2SAT 96; BMI 33.7
--- NOTE | 2019-09-02 18:45 | EKG12_ITS ---
Test Reason : FEVER Blood Pressure : / mmHG Vent. Rate : 078 BPM Atrial Rate : 078 BPM P-R Int : 170 ms QRS Dur : 086 ms QT Int : 378 ms P-R-T Axes : 051 009 016 degrees QTc Int : 430 ms Normal sinus rhythm Nonspecific T wave abnormality Abnormal ECG Confirmed by NARGIS QUIROGA, NARA ([id number]), editor producer DIANA LOO ([id number]) on 09/07/2019 8:06:43 AM Referred By: ARIANNA Confirmed By:NARA BARILLAS MD
--- NOTE | 2019-09-02 18:48 | ED.RN ---
NO OLD EKGS IN MUSE
--- NOTE | 2019-09-02 18:53 | ED.DCSUM_ITS ---
History of Present Illness Chief Complaint: Fever Informant: Patient Narrative: 29-year-old male with past medical history of DVT presents with concern for chest pain. States it began approximately 7 hours ago. States it is been intermittent but became more constant about 2 to 3 hours ago. States that it is aching and retrosternal. States that it does radiate through to his back. States he is also had dyspnea without nausea, vomiting, or diaphoresis. States that he has noticed that he felt like he has been more shortness of breath over the past 2 to 3 months. Patient states that he did have a DVT which was provoked by a right knee surgery approximately 6 months ago. States that he was on blood thinners for 3 months but is no longer on this medication. Denies any cough. He did have a fever earlier today. States it was 100 ?F. Denies any cough. Denies any sick contacts. Denies any drugs or alcohol today. Past Medical History - Allergies and Home Meds Allergies/Adverse Reactions: Allergies No Known Allergies Allergy (Verified 09/02/19 18:35) Primary Care Physician: Kendrick Villarreal MD [Primary Care Provider] - Prior records reviewed: Yes Past Medical History: - - DVT Surgical History: no surgical history, - - Right knee surgery Smoking Status: Never smoker Alcohol: None Drugs: None Review of Systems General: Denies: Chills, Fever, Sweats Eyes: Denies: Visual changes - bilaterally, Diplopia ENT: Denies: Rhinorrhea, Sore throat Cardiovascular: Reports: Chest pain. Denies: Palpitations Respiratory: Reports: Dyspnea. Denies: Cough, Dyspnea on exertion Gastrointestinal: Denies: Abdominal pain, Nausea, Vomiting, Diarrhea, Melena, He matochezia Genitourinary: Denies: Dysuria, Hematuria, Frequency Musculoskeletal: Reports: Back pain. Denies: Extremity Pain Skin: Denies: Rash, Wounds Neurological: Denies: Headache, Weakness, Numbness Physical Exam Vital Signs/Narrative: Vital Signs Temp Pulse Resp BP Pulse Ox 09/02/19 18:31 98.3 F 78 15 158/87 H 96 Inital Vital Signs reviewed: Yes General: Well nourished, Well developed, No Acute Distress Head: Normocephalic, Atraumatic Eyes: Perrl, EOMI ENT: Moist mucous membranes, No rhinorrhea Neck: Supple, Nontender Cardiovascular: Regular rate, Regular rhythm, No murmurs Respiratory: No distress, CTA bilaterally, Chest nontender Abdomen: Soft, Nontender, Nondistended, Normal bowel sounds Back: Nontender, Normal Inspection Extremities: Nontender, No edema Skin: Normal color, No rash Neurological: Alert, Oriented x3, Cranial nerves II-XII grossly intact, Normal Strength, Normal Sensation Psychological: Normal affect, Normal Mood Diagnostic/Tx/Re-eval Clinical Impression(s) from Imaging Studies Chest X-Ray 09/02/19 19:13 IMPRESSION: Normal x-ray examination of the chest. Electronically Signed: Pam Andrew MD at 19:32 EDT , Service support , Chest CTA 09/02/19 20:10 IMPRESSION: Normal CTA chest examination, without a demonstrated pulmonary embolism or arterial dissection. Electronically Signed: Pam Andrew MD at 21:04 EDT , Service support , Laboratory Data 09/02/19 09/02/19 09/02/19 18:59 18:59 18:59 WBC Cancelled Corrected WBC Cancelled RBC Cancelled Hgb Cancelled Hct Cancelled MCV Cancelled MCH Cancelled MCHC Cancelled RDW Std Deviation Cancelled RDW Coeff of Adelina Cancelled Plt Count Cancelled MPV Cancelled Immature Gran % (Auto) Cancelled Neut % (Auto) Cancelled Lymph % (Auto) Cancelled Frio % (Auto) Cancelled Eos % (Auto) Cancelled Baso % (Auto) Cancelled Absolute Neuts (auto) Cancelled Absolute Lymphs (auto) Cancelled Total Counted Cancelled Neutrophils % (Manual) Cancelled Band Neutrophils % Cancelled Lymphocytes % (Manual) Cancelled Monocytes % (Manual) Cancelled Eosinophils % (Manual) Cancelled Basophils % (Manual) Cancelled Metamyelocytes % Cancelled Myelocytes % Cancelled Promyelocytes % Cancelled Blast Cells % Cancelled Plasma Cell % (Manual) Cancelled Other Cells % Cancelled Nucleated RBC % Cancelled Nucleated RBCs/100 WBC Cancelled Differential Comment Cancelled Diff Path Review Cancelled Hypersegmented Neuts Cancelled Atypical Lymphocytes Cancelled Reactive Lymphocytes Cancelled Smudge Cells Cancelled Toxic Granulation Cancelled Toxic Vacuolation Cancelled Dohle Bodies Cancelled Aditya Rods Cancelled Platelet Estimate Cancelled Plt Morphology Comment Cancelled RBC Morphology Cancelled Polychromasia Cancelled Hypochromasia Cancelled Poikilocytosis Cancelled Basophilic Stippling Cancelled Anisocytosis Cancelled Microcytosis Cancelled Macrocytosis Cancelled Spherocytes Cancelled Sickle Cells Cancelled Target Cells Cancelled Tear Drop Cells Cancelled Ovalocytes Cancelled Stomatocytes Cancelled [place] Bodies Cancelled Jenna Cells Cancelled Bite Cells Cancelled Crenated Cell Cancelled Acanthocytes (Spur) Cancelled Rouleaux Cancelled Schistocytes Cancelled D-Dimer Quant (PE/DVT) Cancelled Sodium Cancelled Potassium Cancelled Chloride Cancelled Carbon Dioxide Cancelled Anion Gap Cancelled BUN Cancelled Creatinine Cancelled Estim Creat Clear Calc Cancelled Est GFR (MDRD) Af Amer Cancelled Est GFR (MDRD) Non-Af Cancelled BUN/Creatinine Ratio Cancelled Glucose Cancelled Calcium Cancelled Troponin I Cancelled 09/02/19 09/02/19 09/02/19 19:32 19:32 19:32 WBC 5.5 Corrected WBC RBC 5.13 Hgb 15.1 Hct 45.1 MCV 87.9 MCH 29.4 MCHC 33.5 RDW Std Deviation 40.8 RDW Coeff of Adelina 12.7 Plt Count 276 MPV 10.1 Immature Gran % (Auto) 0.200 Neut % (Auto) 57.2 Lymph % (Auto) 31.9 Frio % (Auto) 9.2 Eos % (Auto) 1.1 Baso % (Auto) 0.4 Absolute Neuts (auto) 3.2 Absolute Lymphs (auto) 1.76 Total Counted Neutrophils % (Manual) Band Neutrophils % Lymphocytes % (Manual) Monocytes % (Manual) Eosinophils % (Manual) Basophils % (Manual) Metamyelocytes % Myelocytes % Promyelocytes % Blast Cells % Plasma Cell % (Manual) Other Cells % Nucleated RBC % 0 Nucleated RBCs/100 WBC Differential Comment Diff Path Review Hypersegmented Neuts Atypical Lymphocytes Reactive Lymphocytes Smudge Cells Toxic Granulation Toxic Vacuolation Dohle Bodies Aditya Rods Platelet Estimate Plt Morphology Comment RBC Morphology Polychromasia Hypochromasia Poikilocytosis Basophilic Stippling Anisocytosis Microcytosis Macrocytosis Spherocytes Sickle Cells Target Cells Tear Drop Cells Ovalocytes Stomatocytes [place] Bodies [place] Cells Bite Cells Crenated Cell Acanthocytes (Spur) Rouleaux Schistocytes D-Dimer Quant (PE/DVT) <= 0.27 Sodium 141 Potassium 3.7 Chloride 109 H Carbon Dioxide 25.0 Anion Gap 7 BUN 22 H Creatinine 1.08 Estim Creat Clear Calc 109.43 Est GFR (MDRD) Af Amer 105 Est GFR (MDRD) Non-Af 87 BUN/Creatinine Ratio 20.4 H Glucose 110 H Calcium 8.9 Troponin I < 0.015 - Rhythm Strip Rhythm Strip: Sinus Rhythm Rate: 78 Ectopy: None - EKG Initial EKG Interpretation: Sinus Rhythm - Sinus rhythm at 78 bpm. NC interval 170 ms. QTC of [address] changes. - Medical Decision Making Appears well and nontoxic. Vital signs within normal limits. EKG nonischemic. Troponin negative. D-dimer negative. Patient was having pain that radiated into his back so CTA was done which shows no evidence of aortic dissection or pulmonary embolism. Patient was moderate in department for approximately 3 hours. Patient's chest pain is been constant for least 4 hours prior to arrival. I feel a single troponin is enough to rule the patient out for ACS. Unclear the cause of the patient's pain however his heart score is 1. Patient will be advised to follow-up with his primary care provider and return for any new or worsening pain. Patient agreeable and discharged home in stable condition. ED Disposition - Plan for ED Patient: Disposition: Home or Assisted Living Diagnosis: Chest pain, Dyspnea Instructions: ED Chest Pain Atypical Unkn Cause, ED Dyspnea Referrals: Kendrick Villarreal MD [Primary Care Provider] -
--- NOTE | 2019-09-02 19:13 | RAD_ITS ---
STUDY: X-RAY CHEST REASON FOR EXAM: Male, 29 years old. FEVER AND SOB ONSET 7 HRS AGO TECHNIQUE: 1 view COMPARISON: None. FINDINGS: The lungs are clear and expanded. There is no demonstrated pleural abnormality. Normal size heart. Normal mediastinum and adrian. Normal visualized pulmonary arteries. Normal visualized aortic arch and descending thoracic aorta. Normal visualized thoracic spine. Normal visualized ribs, clavicles, and shoulders. There is no demonstrated abnormality of the visualized soft tissue structures of the upper abdomen. RAD/Chest 1 View (Portable) IMPRESSION: Normal x-ray examination of the chest. Electronically Signed: Pam Andrew MD at 19:32 EDT , Service support ,
[2019-09-02 19:41] LABS: Absolute Lymphocyte Count 1.76 X10^3/uL (0.83-4.51); Absolute Neutrophil Count 3.2 X10^3/uL (2.0-7.7); Basophil# 0.02 X10^3/uL; Basophil% 0.4 % (0-1); Eosinophil# 0.06 X10^3/uL; Eosinophils% 1.1 % (0-5); Hematocrit 45.1 % (40-54); Hemoglobin 15.1 g/dL (13.0-16.5); Lymphocyte # 1.76 X10^3/ul (4.0); Lymphocyte % 31.9 % (19-41); Mean Corp Hgb Conc 33.5 g/dL (32-36); Mean Corpuscular Hgb 29.4 pg (27.0-32.0); Mean Corpuscular Volume 87.9 fL (80-94); Mean Platelet Vol. 10.1 fl (6.2-12.0); Monocyte# 0.51 X10^3/uL; Monocyte% 9.2 % (0-10); NRBC Flagged by Analyzer 0 % (0-5); Neutrophil # 3.16 X10^3/uL (2.7-7.7); Neutrophil % 57.2 % (47-70); Platelet Count 276 K/mm3 (150-450); RBC Distribution Width CV 12.7 % (11.6-14.6); RBC Distribution Width SD 40.8 fl (35.1-43.9); Red Blood Count 5.13 M/mm3 (4.6-6.2); White Blood Count 5.5 K/mm3 (4.4-11.0)
[2019-09-02 19:57] LABS: D-Dimer Quantitative (DVT/PE) <= 0.27 FEU/ug/m (0.27-0.49)
[2019-09-02 19:59] LABS: Anion Gap 7 (5-15); BUN 22 mg/dL (7-18); BUN/Creat Ratio 20.4 RATIO (10-20); Calcium,Total 8.9 mg/dL (8.5-10.1); Chloride 109 mmol/L (98-107); Creatinine, Serum 1.08 mg/dL (0.70-1.30); EST Glomerular Filtration Rate 87 mL/min (>60); Est Glom Filt Rate - Afr Amer 105 mL/min (>60); Estimated Creatinine Clearance 109.43 ml/min; Glucose 110 mg/dL (74-106); Potassium 3.7 mmol/L (3.5-5.1); Sodium Level 141 mmol/L (136-145)
[2019-09-02] MEDS: Aspirin 81 MG TAB.CHEW 324 MG PO (20:08)
--- NOTE | 2019-09-02 20:10 | CT_ITS ---
STUDY: CTA CHEST REASON FOR EXAM: Male, 29 years old. FEVER AND SOB ONSET 7 HOURS AGO. H/O DVT. NEG D-DIMER RADIATION DOSAGE (If Supplied By Facility): CTDIvol = ( 12.64 ) mGy, DLP = ( 493.96 ) mGycm TECHNIQUE: The examination was performed with the intravenous administration of IV 100mL Isovue-370. Post-processing of the angiographic images was performed, with multiplanar reformation and 3D reconstruction. Individualized dose optimization techniques were used for this CT. COMPARISON: Portable chest radiograph of September 02, 2019 FINDINGS: Normal enhancement of the main pulmonary artery and right and left pulmonary arteries. Normal enhancement of the bilateral peripheral pulmonary arteries. There is no demonstrated pulmonary embolism. Normal thoracic aorta and visualized great vessels. There is no demonstrated aortic dissection. Normal heart and pericardium. Normal mediastinum. Normal hilar regions. Normal visualized trachea and bronchi. The lungs are well expanded. Normal pulmonary parenchyma. Normal pleura. Normal chest wall structures. Normal osseous structures. No abnormality in the uppermost abdomen. CT/CTA Chest W/WO Contrast IMPRESSION: Normal CTA chest examination, without a demonstrated pulmonary embolism or arterial dissection. Electronically Signed: Pam Andrew MD at 21:04 EDT , Service support ,
[2019-09-02 20:39] VITALS: BP 154/84; PULSE 80; RESP 18; O2SAT 96
[2019-09-02 21:28] VITALS: BP 129/101; PULSE 80; RESP 18; O2SAT 96
== END 2019-09-02 21:35 | disposition home or self-care (01) ==
PROVIDERS: Emergency Provider Emergency Medicine; PCP Family Medicine
DX: R07.9 Chest pain, unspecified (principal); R06.00 Dyspnea, unspecified; Z86.718 Personal history of other venous thrombosis and embolism
CPT/HCPCS: 71045; 71275; 80048; 84484; 85025; 85379; 93005; 99285; Q9967; A4216

== ENCOUNTER 2019-09-07 16:30 | Outpatient (RCR) | payer OTHER, SELFPAY ==
--- NOTE | 2019-02-27 09:20 | HP.PTEVAL_ITS ---
Patient's Visit Information HALIMA RAYMOND is a 28 year old M referred to Physical Therapy by NEDRA HAMEED with a diagnosis of R patellar rupture repair 02/13/19. Date of Evaluation: 02/27/19 Physical Therapist: Yogesh Bautista, PT, ATC - Visit Plan Frequency: 2x /Week Duration: 6 Weeks Plan: Follow protocol for patellar tendon rupture repair - Subjective Findings: DOS: 02/13/19. Pt reports he was playing playing tennis when he suddenly stopped and fell to the ground. Pt reports he had severe pain at the time and went to the ER. Pt reports he had surgery one week after his surgery. Pt reports he is feeling better now. Pt reports he has minimal pain at this time, but feels really weak. No tingling or numbness in R LE at this time. No sleep difficulty secondary to pain. 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 Pt reports he has been performing a HEP consisting of SLR, knee flexion, and ankle pumps. 1/10 pain at rest, 3/10 pain at worst - Pain R quad Pain Intensity (Out of 10): 1 Pain Intensity Range: 3 - Objective Neuro: B LE sensation is WNL to light touch. Observation: Incision is healing well. No signs of infection. ROM: L knee 0-145 degrees, R knee 0-30 degrees. MMT: R LE 5/5, L not tested - Goals Goal 1:: Decrease R knee pain x 50% to aid with ambulation Goal Time Frame: 4-6 Weeks Goal 2:: Increase R knee flexion ROM x 70 degrees to aid with IADL's Goal Time Frame: 4-6 Weeks Goal 3:: Increase R knee strength x 2 grades to aid with stair negotiation. Goal Time Frame: 4-6 Weeks Goal 4:: I with HEP Goal Time Frame: 4-6 Weeks - Rehabilitation Potential Physical Therapy Diagnosis: R knee pain, weakness, and limited ROM secondary to R patellar rupture Rehabilitation Potential: Good - Anticipated Interventions Patient/Client Instruction: Educate patient on: Condition, Plan of Care For the Purpose of:: To improve self management Therapeutic Exercise to Include: Strength training, Endurance training, Balance training, Flexibilty training, Gait and locomotor training, Passive ROM, Active ROM, Dynamic Lumbar Stabilization For the Purpose of:: To decrease pain, To increase ROM, To improve muscle performance and motor function Cryotherapy (ice pack, ice massage): Yes For the Purpose of:: To decrease pain Thank you for the opportunity to evaluate your patient. For Medicare and Medicare HMO plans, please review the plan of care and approve it. It will need to be FAXED BACK to us at [phone] for Medicare purposes. For Medicare only, by signing this I certify the plan of care. Please let me know if there are questions or concerns regarding this plan of care. Physician Signature: Date:
--- NOTE | 2019-04-27 12:02 | HP.PTREVAL ---
NEDRA HAMEED, It has been my pleasure to treat HALIMA RAYMOND over the last 5 visits for R patellar rupture repair 02/13/19. Please see the progress note below for an update on the physical therapy plan of care! Subjective: Pt returns today after vacation. Objective/Function: R knee girth= 40 cm. R knee pain 0/10 currently, 7/10 with stretching. R knee ROM: 0-95. R knee MMT: 4/5 throughout. Pt is progressing well toward Rx goals Plan Plan: Begin strengthening Goals Goal 1:: Decrease R knee pain x 50% to aid with ambulation Goal Time Frame: 4-6 Weeks Goal 2:: Increase R knee flexion ROM x 70 degrees to aid with IADL's Goal Time Frame: 4-6 Weeks Goal 3:: Increase R knee strength x 2 grades to aid with stair negotiation. Goal Time Frame: 4-6 Weeks Goal 4:: I with HEP Goal Time Frame: 4-6 Weeks Anticipated Interventions Patient/Client Instruction: Educate patient on: Condition, Plan of Care For the Purpose of:: To improve self management Therapeutic Exercise to Include: Strength training, Endurance training, Balance training, Flexibilty training, Gait and locomotor training, Passive ROM, Active ROM, Dynamic Lumbar Stabilization For the Purpose of:: To decrease pain, To increase ROM, To improve muscle performance and motor function Cryotherapy (ice pack, ice massage): Yes For the Purpose of:: To decrease pain Please do not hesitate to contact me at [phone] by phone or if you have questions or concerns regarding this new plan of care! Sincerely, Yogesh Bautista, PT, ATC
--- NOTE | 2019-06-08 16:26 | HP.PTREVAL ---
NEDRA HAMEED, It has been my pleasure to treat HALIMA RAYMOND over the last 10 visits for R patellar rupture repair 02/13/19. Please see the progress note below for an update on the physical therapy plan of care! Subjective: No pain this date, just tight ness Objective/Function: R knee pain ranges from 0-3/10. R knee ROM: 0-130 degrees. R knee MMT: flex= 5/5, ext= 4/5. Pt is making great progress at this time Plan Plan: Recheck sarah one month to determine further PT for sports specific Goals Goal 1:: Decrease R knee pain x 50% to aid with ambulation Goal Time Frame: 4-6 Weeks Goal 2:: Increase R knee flexion ROM x 70 degrees to aid with IADL's Goal Time Frame: 4-6 Weeks Goal 3:: Increase R knee strength x 2 grades to aid with stair negotiation. Goal Time Frame: 4-6 Weeks Goal 4:: I with HEP Goal Time Frame: 4-6 Weeks Anticipated Interventions Patient/Client Instruction: Educate patient on: Condition, Plan of Care For the Purpose of:: To improve self management Therapeutic Exercise to Include: Strength training, Endurance training, Balance training, Flexibilty training, Gait and locomotor training, Passive ROM, Active ROM, Dynamic Lumbar Stabilization For the Purpose of:: To decrease pain, To increase ROM, To improve muscle performance and motor function Cryotherapy (ice pack, ice massage): Yes For the Purpose of:: To decrease pain Please do not hesitate to contact me at [phone] by phone or if you have questions or concerns regarding this new plan of care! Sincerely, Yogesh Bautista, PT, ATC
--- NOTE | 2019-07-14 10:52 | HP.PTREVAL ---
NEDRA HAMEED, It has been my pleasure to treat HALIMA RAYMOND over the last 11 visits for R patellar rupture repair 02/13/19. Please see the progress note below for an update on the physical therapy plan of care! Subjective: No pain this date. 17 weeks post op at this time. Objective/Function: R knee pain 0/10 this date. R knee flex MMT= 5/5, ext= 4/5. R knee ROM: 0-129 degrees. Pt is progressing well at this time Plan Plan: Cont with HEP, recheck in one month when running can commence Goals Goal 1:: Decrease R knee pain x 50% to aid with ambulation Goal Time Frame: 4-6 Weeks Goal Progress: Goal Met Goal 2:: Increase R knee flexion ROM x 70 degrees to aid with IADL's Goal Time Frame: 4-6 Weeks Goal Progress: Goal Met Goal 3:: Increase R knee strength x 2 grades to aid with stair negotiation. Goal Time Frame: 4-6 Weeks Goal Progress: Progressing Goal 4:: I with HEP Goal Time Frame: 4-6 Weeks Goal Progress: Goal Met Anticipated Interventions Patient/Client Instruction: Educate patient on: Condition, Plan of Care For the Purpose of:: To improve self management Therapeutic Exercise to Include: Strength training, Endurance training, Balance training, Flexibilty training, Gait and locomotor training, Passive ROM, Active ROM, Dynamic Lumbar Stabilization For the Purpose of:: To decrease pain, To increase ROM, To improve muscle performance and motor function Cryotherapy (ice pack, ice massage): Yes For the Purpose of:: To decrease pain Please do not hesitate to contact me at [phone] by phone or if you have questions or concerns regarding this new plan of care! Sincerely, Yogesh Bautista, PT, ATC
--- NOTE | 2019-08-17 12:58 | HP.PTREVAL ---
NEDRA HAMEED, It has been my pleasure to treat HALIMA RAYMOND over the last 12 visits for R patellar rupture repair 02/13/19. Please see the progress note below for an update on the physical therapy plan of care! Subjective: Pt reports no pain at all. He believes he is ready to begin athletic movements at this time. Objective/Function: R knee pain 0/10. R knee MMT: 5/5 throughout. R knee ROM: 0-133 degrees. Pt continues to show improvements Plan Plan: Pt to begin jogging program I for 3 weeks. Follow up at that time and begin sport specific training Goals Goal 1:: Decrease R knee pain x 50% to aid with ambulation Goal Time Frame: 4-6 Weeks Goal Progress: Goal Met Goal 2:: Increase R knee flexion ROM x 70 degrees to aid with IADL's Goal Time Frame: 4-6 Weeks Goal Progress: Goal Met Goal 3:: Increase R knee strength x 2 grades to aid with stair negotiation. Goal Time Frame: 4-6 Weeks Goal Progress: Progressing Goal 4:: I with HEP Goal Time Frame: 4-6 Weeks Goal Progress: Goal Met Anticipated Interventions Patient/Client Instruction: Educate patient on: Condition, Plan of Care For the Purpose of:: To improve self management Therapeutic Exercise to Include: Strength training, Endurance training, Balance training, Flexibilty training, Gait and locomotor training, Passive ROM, Active ROM, Dynamic Lumbar Stabilization For the Purpose of:: To decrease pain, To increase ROM, To improve muscle performance and motor function Cryotherapy (ice pack, ice massage): Yes For the Purpose of:: To decrease pain Please do not hesitate to contact me at [phone] by phone or if you have questions or concerns regarding this new plan of care! Sincerely, Yogesh Bautista, PT, ATC
--- NOTE | 2019-09-17 13:53 | HP.PT.NRP ---
HALIMA RAYMOND was seen in my office for initial evaluation on 02/27/19. The following Plan of Care was established for this patient: Initial Frequency: 2x /Week Initial Duration: 6 Weeks Patient/Client Instruction: Educate patient on: Condition, Plan of Care For the Purpose of:: To improve self management Therapeutic Exercise to Include: Strength training, Endurance training, Balance training, Flexibilty training, Gait and locomotor training, Passive ROM, Active ROM, Dynamic Lumbar Stabilization For the Purpose of:: To decrease pain, To increase ROM, To improve muscle performance and motor function Cryotherapy (ice pack, ice massage): Yes For the Purpose of:: To decrease pain This patient was last seen in our office . Pertinent comments regarding their Physical therapy will appear below: Transferring info to a new V# At this point I will be discontinuing this patient from physical therapy. I would be happy to see this patient again in the future if found appropriate by the physician. Thank you! Yogesh Bautista, PT, ATC
== END 2019-09-07 19:00 | disposition home or self-care (01) ==
LOC: PT 16:30
PROVIDERS: Family Provider Family Medicine; PCP Family Medicine
DX: S86.811D Strain of other muscle(s) and tendon(s) at lower leg level, right leg, subsequent encounter (principal)
CPT/HCPCS: 97110; 97140; 97161; 97164; 97530

== ENCOUNTER 2019-09-28 17:00 | Outpatient (RCR) | payer OTHER, SELFPAY ==
--- NOTE | 2019-09-28 17:46 | HP.PTDCSUM ---
It has been my pleasure to treat HALIMA RAYMOND referred by NEDRA HAMEED, with the diagnosis of R patellar tendon repair 02/13/19 for a total of 14 visit(s). Discharge Date: Please see the following information for a summary of their discharge status. Subjective: I have been playing tennis and doing yoga and crossfit. I feel good. R knee Pain Intensity (Out of 10): 3 % Improvement: 75 Objective/Function: R knee pain 3/10 after playing tennis. R knee ROM; 0-130 degrees. R knee MMT: 5/5 throughout. I with HEP. Rx goals achieved Goal 1:: Increase R knee strength x 2 grades to aid with stair negotiation. Goal Progress: Goal Met Goal 2:: I with HEP Goal Progress: Goal Met Goal 3:: RTS without limitations Goal Progress: Goal Met Plan: Discharge If there are questions or concerns regarding this patient's physical therapy, please feel free to call me at [phone]. Thank you for the referral of this patient. Sincerely, Yogesh Bautista, PT, ATC
== END 2019-09-28 19:00 | disposition home or self-care (01) ==
LOC: PT 17:00
PROVIDERS: PCP Family Medicine
DX: S86.811D Strain of other muscle(s) and tendon(s) at lower leg level, right leg, subsequent encounter (principal)
CPT/HCPCS: 97164